=== PATIENT | female | born 1950 | race Caucasian/White ===

== ENCOUNTER 2023-09-29 07:27 | Outpatient (RCR) | payer MEDICARE, SELFPAY ==
[2023-09-29 10:05] VITALS: BP 173/78; PULSE 76; TEMP 36.9; O2SAT 98
[2023-09-29] MEDS: ROMOSOZUMAB-AQQG 210 MG/2.34 ML SYRINGE SQ (10:14)
--- NOTE | 2023-09-29 10:18 | PC.NURSE ---
1010: Pt. to [facility]. Seated in recliner. VSS. BP elevated. Pt. states no issues with BP in past. Medicated with Evenity x's 2 injection sites to right arm. Trace bleeding to site #1, bandaid applied. Tolerates without c/o. 1015: D/c'd amb to home.
== END 2023-10-01 15:27 | disposition home or self-care (01) ==
LOC: INF 07:27
PROVIDERS: PCP Nurse Practitioner; Visit Provider Nurse Practitioner
DX: M80.00XA Age-related osteoporosis with current pathological fracture, unspecified site, initial encounter for fracture (principal)
CPT/HCPCS: 96372; J3111

== ENCOUNTER 2023-11-01 07:38 | Outpatient (RCR) | payer MEDICARE, SELFPAY ==
[2023-11-01] MEDS: ROMOSOZUMAB-AQQG 210 MG/2.34 ML SYRINGE SQ (13:05)
--- NOTE | 2023-11-01 13:10 | PC.NURSE ---
1300 Arrival ambulatory to chair 2. alert oriented. 1305 evenity administered as ordered rt posterior arm, 1310 tolerated well released ambulatory.
== END 2023-11-01 14:03 | disposition home or self-care (01) ==
LOC: INF 07:38
PROVIDERS: PCP Nurse Practitioner; Visit Provider Nurse Practitioner
DX: M80.00XA Age-related osteoporosis with current pathological fracture, unspecified site, initial encounter for fracture (principal)
CPT/HCPCS: 96372; J3111

== ENCOUNTER 2023-12-08 07:31 | Outpatient (RCR) | payer MEDICARE, SELFPAY ==
[2023-12-08 13:50] VITALS: BP 155/84; PULSE 70; TEMP 36.6; O2SAT 98
[2023-12-08] MEDS: ROMOSOZUMAB-AQQG 210 MG/2.34 ML SYRINGE SQ (13:52)
--- NOTE | 2023-12-08 14:34 | PC.NURSE ---
1350: Pt. to [facility] amb. for scheduled injection. Seated in chair. VSS. Medicated with Evenity SQ as directed to left arm x's 2 injection site. No bleeding from either site. Pt. tolerated without c/o. 1358: Pt. d/c'd amb. to home.
== END 2023-12-09 15:29 | disposition home or self-care (01) ==
LOC: INF 07:31
PROVIDERS: PCP Nurse Practitioner; Visit Provider Nurse Practitioner
DX: M81.0 Age-related osteoporosis without current pathological fracture (principal)
CPT/HCPCS: 96372; J3111

== ENCOUNTER 2024-01-14 07:39 | Outpatient (RCR) | payer MEDICARE, SELFPAY ==
[2024-01-14 13:03] VITALS: BP 165/79; PULSE 69; TEMP 36.6; O2SAT 98
[2024-01-14] MEDS: ROMOSOZUMAB-AQQG 210 MG/2.34 ML SYRINGE SQ (13:04)
--- NOTE | 2024-01-14 13:13 | PC.NURSE ---
1303: Pt. to [facility] amb. for Evenity injection. Seated in recliner. VSS. Medicated with Evenity, see documentation. No bleeding to injection sites x's 2. Tolerated without c/o. 1310: D/c'd amb. to work.
== END 2024-01-29 23:59 | disposition home or self-care (01) ==
LOC: INF 07:39
PROVIDERS: PCP Nurse Practitioner; Visit Provider Nurse Practitioner
DX: M81.0 Age-related osteoporosis without current pathological fracture (principal)
CPT/HCPCS: 96372; J3111

== ENCOUNTER 2024-02-23 07:37 | Outpatient (RCR) | payer MEDICARE, SELFPAY ==
[2024-02-23 13:25] VITALS: BP 154/81; PULSE 64; TEMP 36.1; O2SAT 98
[2024-02-23] MEDS: ROMOSOZUMAB-AQQG 210 MG/2.34 ML SYRINGE SQ (13:30)
--- NOTE | 2024-02-23 13:51 | PC.NURSE ---
1325: Pt. to [facility] amb. for ordered injection. Seated in chair. VSS. Medicated with Evenity x's 2 injection sites to left upper arm. No bleeding to sites. Pt. tolerated without c/o. 1333: D/c'd amb. to home.
== END 2024-02-28 23:59 | disposition home or self-care (01) ==
LOC: INF 07:37
PROVIDERS: PCP Nurse Practitioner; Visit Provider Nurse Practitioner
DX: M81.0 Age-related osteoporosis without current pathological fracture (principal)
CPT/HCPCS: 96372; J3111

== ENCOUNTER 2024-03-23 07:33 | Outpatient (RCR) | payer MEDICARE, SELFPAY ==
[2024-03-23] MEDS: ROMOSOZUMAB-AQQG 210 MG/2.34 ML SYRINGE SQ (12:15)
[2024-03-23 12:28] VITALS: BP 158/105; PULSE 64; TEMP 36; O2SAT 98
== END 2024-03-30 23:59 | disposition home or self-care (01) ==
LOC: INF 07:33
PROVIDERS: PCP Nurse Practitioner; Visit Provider Nurse Practitioner
DX: M81.0 Age-related osteoporosis without current pathological fracture (principal)
CPT/HCPCS: 96372; J3111

== ENCOUNTER 2024-05-04 07:28 | Outpatient (RCR) | payer MEDICARE, SELFPAY ==
[2024-05-04 12:00] VITALS: BP 136/68; PULSE 69; TEMP 36.6; O2SAT 96
[2024-05-04] MEDS: ROMOSOZUMAB-AQQG 210 MG/2.34 ML SYRINGE SQ (12:00)
== END 2024-05-08 08:38 | disposition home or self-care (01) ==
LOC: INF 07:28
PROVIDERS: PCP Nurse Practitioner; Visit Provider Nurse Practitioner
DX: M81.0 Age-related osteoporosis without current pathological fracture (principal)
CPT/HCPCS: 96372; J3111

== ENCOUNTER 2024-06-07 10:20 | Outpatient (RCR) | payer MEDICARE, SELFPAY ==
[2024-06-07] MEDS: ROMOSOZUMAB-AQQG 210 MG/2.34 ML SYRINGE SQ (10:13)
[2024-06-07 10:21] VITALS: BP 149/79; PULSE 62; TEMP 36.8; O2SAT 996
== END 2024-06-09 08:01 | disposition home or self-care (01) ==
LOC: INF 10:20
PROVIDERS: PCP Nurse Practitioner; Visit Provider Nurse Practitioner
DX: M81.0 Age-related osteoporosis without current pathological fracture (principal)
CPT/HCPCS: 96372; J3111

== ENCOUNTER 2024-07-05 07:48 | Outpatient (RCR) | payer MEDICARE, SELFPAY ==
[2024-07-05] MEDS: ROMOSOZUMAB-AQQG 210 MG/2.34 ML SYRINGE SQ (13:55)
[2024-07-05 13:56] VITALS: BP 132/77; PULSE 70; TEMP 36.6; O2SAT 95
== END 2024-07-05 15:16 | disposition home or self-care (01) ==
LOC: INF 07:48
PROVIDERS: PCP Nurse Practitioner; Visit Provider Nurse Practitioner
DX: M80.00XA Age-related osteoporosis with current pathological fracture, unspecified site, initial encounter for fracture (principal)
CPT/HCPCS: 96372; J3111

== ENCOUNTER 2024-08-02 07:37 | Outpatient (RCR) | payer MEDICARE, SELFPAY ==
[2024-08-02] MEDS: ROMOSOZUMAB-AQQG 210 MG/2.34 ML SYRINGE SQ (10:40)
[2024-08-02 10:45] VITALS: BP 147/71; PULSE 59; TEMP 36.6; O2SAT 95
== END 2024-08-02 14:31 | disposition home or self-care (01) ==
LOC: INF 07:37
PROVIDERS: PCP Nurse Practitioner; Visit Provider Nurse Practitioner
DX: M80.00XA Age-related osteoporosis with current pathological fracture, unspecified site, initial encounter for fracture (principal)
CPT/HCPCS: 96372; J3111

== ENCOUNTER 2024-09-01 07:29 | Outpatient (RCR) | payer MEDICARE, SELFPAY ==
[2024-09-01 10:36] VITALS: BP 125/77; PULSE 62; TEMP 36.6
[2024-09-01] MEDS: ROMOSOZUMAB-AQQG 210 MG/2.34 ML SYRINGE SQ (10:41)
== END 2024-09-05 08:47 | disposition home or self-care (01) ==
LOC: INF 07:29
PROVIDERS: PCP Nurse Practitioner; Visit Provider Nurse Practitioner
DX: M81.0 Age-related osteoporosis without current pathological fracture (principal)
CPT/HCPCS: 96372; J3111

== ENCOUNTER 2024-10-02 07:33 | Outpatient (RCR) | payer MEDICARE, SELFPAY ==
[2024-10-02 12:30] VITALS: BP 135/82; PULSE 65; TEMP 36.1; O2SAT 96
[2024-10-02] MEDS: ROMOSOZUMAB-AQQG 210 MG/2.34 ML SYRINGE SQ (12:32)
== END 2024-10-02 13:40 | disposition home or self-care (01) ==
LOC: INF 07:33
PROVIDERS: PCP Nurse Practitioner; Visit Provider Nurse Practitioner
DX: M81.0 Age-related osteoporosis without current pathological fracture (principal)
CPT/HCPCS: 96372; J3111

== ENCOUNTER 2025-03-30 08:54 | Outpatient (RCR) | payer MEDICARE, SELFPAY ==
[2025-03-30 09:19] LABS: Calcium 8.6 mg/dL (8.5-10.1); Estimated GFR (African America >60 (>=60 mL/min/1.73m^2); Estimated GFR (Non-African Ame >60 (>=60 mL/min/1.73m^2)
[2025-03-30 10:15] VITALS: BP 154/87; PULSE 64; TEMP 36.6; O2SAT 97
[2025-03-30] MEDS: DENOSUMAB 60 MG/ML SYRINGE SUBQ (10:20)
== END 2025-04-02 12:05 | disposition home or self-care (01) ==
LOC: LAB 08:54
PROVIDERS: PCP Nurse Practitioner; Visit Provider Nurse Practitioner
DX: Z51.81 Encounter for therapeutic drug level monitoring (principal); M81.0 Age-related osteoporosis without current pathological fracture; Z79.899 Other long term (current) drug therapy
CPT/HCPCS: 36415; 82310; 82565; 96372; J0897